=== PATIENT | male | born 1975 ===

== ENCOUNTER → 2018-08-20 21:20 | Outpatient (REF) | payer OTHER, SELFPAY ==
[2018-08-20 22:11] LABS: Add Manual Diff / Slide Review NO; Basophils Absolute Auto 0 /uL (0-100); Basophils Percent Auto 0.9 % (0-2); Eosinophils Absolute Auto 300 /uL (0-450); Eosinophils Percent Auto 5.3 % (2-4); Hematocrit 40.2 % (41-53); Hemoglobin 13.5 g/dL (13.5-17.5); Lymphocytes Absolute Auto 1700 /uL (1100-4500); Lymphocytes Percent Auto 32.2 % (25-40); Mean Corpuscular HGB Conc 33.5 % (30-36); Mean Corpuscular Hemoglobin 32.7 PG (26-34); Mean Corpuscular Volume 97.5 fL (80-100); Monocytes Absolute Auto 500 /uL (0-900); Monocytes Percent Auto 8.3 % (3-14); Neutrophils Absolute Auto 2900 /uL (1500-7000); Neutrophils Percent Auto 53.3 % (50-75); Platelet Count 204 X10^3/uL (150-400); Red Blood Cell Count 4.13 X10^6/uL (4.5-5.9); Red Cell Distribution Width 12.8 % (11.6-14.8); White Blood Cell Count 5.4 X10^3/uL (4.5-11.0)
[2018-08-21 03:46] LABS: Thyroid Stimulating Hormone 1.76 uIU/mL (0.47-4.68)
[2018-08-22 14:25] LABS: PSA Total 0.13 ng/mL (< 4.01)
[2018-08-22 16:10] LABS: Dehydroepiandrosterone Sulfate 45 mcg/dL (70-495)
[2018-08-22 19:50] LABS: Estradiol 42 pg/mL (< 40)
[2018-08-25 14:42] LABS: Testosterone, Total 449.8; Testosterone,Free 7.3
[2018-08-25 14:43] LABS: Sex Hormone Binding Globulin 56.1
== END ==
LOC: LAB 21:20
PROVIDERS: Visit Provider Naturopath
DX: E29.1 Testicular hypofunction (principal); E03.9 Hypothyroidism, unspecified
CPT/HCPCS: 36415; 82627; 82670; 84153; 84154; 84270; 84402; 84403; 84439; 84443; 85025

== ENCOUNTER → 2018-09-01 21:41 | Outpatient (REF) | payer OTHER, SELFPAY ==
[2018-09-01 22:40] LABS: Add Manual Diff / Slide Review NO; Basophils Absolute Auto 0 /uL (0-100); Basophils Percent Auto 0.9 % (0-2); Eosinophils Absolute Auto 300 /uL (0-450); Eosinophils Percent Auto 6.3 % (2-4); Hematocrit 42.7 % (41-53); Hemoglobin 14.1 g/dL (13.5-17.5); Lymphocytes Absolute Auto 1600 /uL (1100-4500); Mean Corpuscular Hemoglobin 32.5 PG (26-34); Mean Corpuscular Volume 98.6 fL (80-100); Monocytes Absolute Auto 500 /uL (0-900); Monocytes Percent Auto 11.1 % (3-14); Neutrophils Absolute Auto 2200 /uL (1500-7000); Neutrophils Percent Auto 47.7 % (50-75); Platelet Count 185 X10^3/uL (150-400); Red Blood Cell Count 4.33 X10^6/uL (4.5-5.9); Red Cell Distribution Width 13.3 % (11.6-14.8); White Blood Cell Count 4.6 X10^3/uL (4.5-11.0)
== END ==
LOC: LAB 21:41
PROVIDERS: Visit Provider Naturopath
DX: R79.89 Other specified abnormal findings of blood chemistry (principal)
CPT/HCPCS: 36415; 82728; 85025